=== PATIENT | female | born 1935 | race Native Hawaiian/Other Pacific Islander ===

== ENCOUNTER 2016-01-22 09:09 | Inpatient (IN) | payer OTHER ==
[~2016-01-22 09:09] MED LIST: ABILIFY5 MG OR; ALEN70TA19 PO; CARDIZEM LA360 MG PO; CITA20TA2 PO; DITROPAN XL10 MG PO; DIVA500T2 OR; DONE5TAB PO; ESCI10TA PO; FURO40TA93 PO; HYDR10TA47 PO; LEVO0.0723 PO; LIDOPATCH TOP; MAG OXIDE400 M2 OR; MEMA10TA2 PO; METAMUCIL0.52 GM OR; PANT40TA PO; POTA20TA4 PO; SPIR25TA66 PO; UNITH DIRECT150 MCG PO
== END 2016-02-22 08:00 | disposition still patient (30) ==
LOC: PAVB 09:09
PROVIDERS: ADMIT Internal Medicine
DX: Z51.89 Encounter for other specified aftercare (principal)

== ENCOUNTER 2016-02-22 09:00 | Inpatient (IN) | payer OTHER | END 2016-03-24 11:06 | disposition still patient (30) | LOC: PAVB 09:00 | PROVIDERS: ADMIT Internal Medicine | DX: Z51.89 Encounter for other specified aftercare (principal) ==

== ENCOUNTER 2016-02-23 06:51 | Outpatient (CLI) | payer OTHER | END 2016-02-23 19:18 | disposition home or self-care (01) | LOC: LAB 06:51 | DX: E11.9 Type 2 diabetes mellitus without complications (principal) | CPT/HCPCS: 36415; 83036; 84443 ==

== ENCOUNTER 2016-02-23 15:12 | Outpatient (CLI) | payer OTHER | END 2016-02-23 19:22 | disposition home or self-care (01) | LOC: LAB 15:12 | DX: E03.8 Other specified hypothyroidism (principal) ==

== ENCOUNTER 2016-03-16 01:39 | Outpatient (CLI) | payer OTHER | END 2016-03-16 23:30 | disposition home or self-care (01) | LOC: LAB 01:39 | DX: N39.0 Urinary tract infection, site not specified (principal) | CPT/HCPCS: 81000 ==

== ENCOUNTER 2016-03-24 11:50 | Inpatient (IN) | payer OTHER ==
[2016-04-14] MEDS ORDERED: FENT50DI TD (18:21)
[2016-04-14] MEDS ORDERED: HYDR5TAB9 PO (18:22)
[2016-04-14] MEDS ORDERED: DICL1GEL2 TOP (18:22)
[2016-04-14] MEDS ORDERED: MULTIVITAMI1 OR (18:23)
[2016-04-14] MEDS ORDERED: TYLENOL325 MG OR (18:23)
[2016-04-14] MEDS ORDERED: CLARITIN10 M1 PO (18:24)
[2016-04-14] MEDS ORDERED: VIT C/ACEROL500 MG OR (18:24)
[2016-04-14] MEDS ORDERED: LAXATIVE1 TAB OR (18:24)
[2016-04-14] MEDS ORDERED: CELEXA10 MG PO (18:25)
[2016-04-14] MEDS ORDERED: BACTRIM1 TAB PO (18:25)
[2016-04-14] MEDS ORDERED: DILT-XR180 MG OR (18:27)
[2016-04-14] MEDS ORDERED: DONE5TAB PO (18:28)
[2016-04-14] MEDS ORDERED: TIROSINT100 MCG OR (18:29)
[2016-04-14] MEDS ORDERED: NAMENDA XR28 MG OR (18:30)
[2016-04-14] MEDS ORDERED: REQUIP0.25 MG OR (18:30)
== END 2016-04-21 12:35 | disposition still patient (30) ==
LOC: PAVB 11:50
PROVIDERS: ADMIT Internal Medicine
DX: Z51.89 Encounter for other specified aftercare (principal)

== ENCOUNTER 2016-04-06 05:09 | Outpatient (CLI) | payer OTHER | END 2016-04-06 06:09 | disposition home or self-care (01) | LOC: LAB 05:09 | DX: N39.0 Urinary tract infection, site not specified (principal) | CPT/HCPCS: 81000; 87077; 87086; 87088; 87186 ==

== ENCOUNTER 2016-04-10 15:37 | Outpatient (CLI) | payer OTHER | END 2016-04-10 19:08 | disposition home or self-care (01) | LOC: RAD 15:37 | DX: R06.2 Wheezing (principal) ==

== ENCOUNTER 2016-04-14 14:29 | Outpatient (CLI) | payer OTHER, BC ==
[2016-04-14] MEDS ORDERED: FENT50DI TD ×2 (18:21)
[2016-04-14] MEDS ORDERED: HYDR5TAB9 PO ×2 (18:22)
[2016-04-14] MEDS ORDERED: DICL1GEL2 TOP ×2 (18:22)
[2016-04-14] MEDS ORDERED: MULTIVITAMI1 OR ×2 (18:23)
[2016-04-14] MEDS ORDERED: TYLENOL325 MG OR ×2 (18:23)
[2016-04-14] MEDS ORDERED: CLARITIN10 M1 PO ×2 (18:24)
[2016-04-14] MEDS ORDERED: LAXATIVE1 TAB OR ×2 (18:24)
[2016-04-14] MEDS ORDERED: VIT C/ACEROL500 MG OR ×2 (18:24)
[2016-04-14] MEDS ORDERED: CELEXA10 MG PO ×2 (18:25)
[2016-04-14] MEDS ORDERED: BACTRIM1 TAB PO ×2 (18:25)
[2016-04-14] MEDS ORDERED: DILT-XR180 MG OR ×2 (18:27)
[2016-04-14] MEDS ORDERED: DONE5TAB PO ×2 (18:28)
[2016-04-14] MEDS ORDERED: TIROSINT100 MCG OR ×2 (18:29)
[2016-04-14] MEDS ORDERED: REQUIP0.25 MG OR ×2 (18:30)
[2016-04-14] MEDS ORDERED: NAMENDA XR28 MG OR ×2 (18:30)
== END 2016-04-14 19:21 | disposition home or self-care (01) ==
LOC: LAB 14:29
DX: N39.0 Urinary tract infection, site not specified (principal); Z87.440 Personal history of urinary (tract) infections; R25.1 Tremor, unspecified; R23.1 Pallor
CPT/HCPCS: 36415; 81000; 87040; 87077; 87086; 87088; 87186

== ENCOUNTER 2016-04-14 17:40 | Inpatient (IN) | payer OTHER, BC ==
[~2016-04-14] VITALS: Ht 162.6 cm; Wt 71.2 kg
[2016-04-14 17:38] VITALS: BP 160/84; TEMP 99.1
[2016-04-14] MEDS ORDERED: FENT50DI TD ×2 (18:21)
[2016-04-14] MEDS ORDERED: DICL1GEL2 TOP ×2 (18:22)
[2016-04-14] MEDS ORDERED: HYDR5TAB9 PO ×2 (18:22)
[2016-04-14] MEDS ORDERED: TYLENOL325 MG OR ×2 (18:23)
[2016-04-14] MEDS ORDERED: MULTIVITAMI1 OR ×2 (18:23)
[2016-04-14] MEDS ORDERED: LAXATIVE1 TAB OR ×2 (18:24)
[2016-04-14] MEDS ORDERED: CLARITIN10 M1 PO ×2 (18:24)
[2016-04-14] MEDS ORDERED: VIT C/ACEROL500 MG OR ×2 (18:24)
[2016-04-14] MEDS ORDERED: BACTRIM1 TAB PO ×2 (18:25)
[2016-04-14] MEDS ORDERED: CELEXA10 MG PO ×2 (18:25)
[2016-04-14] MEDS ORDERED: DILT-XR180 MG OR ×2 (18:27)
[2016-04-14] MEDS ORDERED: DONE5TAB PO ×2 (18:28)
[2016-04-14] MEDS ORDERED: TIROSINT100 MCG OR ×2 (18:29)
[2016-04-14] MEDS ORDERED: NAMENDA XR28 MG OR ×2 (18:30)
[2016-04-14] MEDS ORDERED: REQUIP0.25 MG OR ×2 (18:30)
[2016-04-14 18:35] LABS: PLATELET COUNT 233 K/uL (152-353)
[2016-04-14 18:41] LABS: POTASSIUM 4.8 mmol/L (3.6-5.2); SODIUM 135 mmol/L (136-145)
[2016-04-14 21:22] VITALS: BP 120/72; TEMP 98; Ht 162.6 cm; Wt 71.2 kg
[2016-04-15] VITALS: BP 125/75; TEMP 97.7
[2016-04-15 04:00] VITALS: BP 128/68; TEMP 98.1
[2016-04-15 07:27] VITALS: BP 133/72; TEMP 98.1
[2016-04-15 12:00] VITALS: BP 132/71; TEMP 98.1
[2016-04-15 16:00] VITALS: BP 128/73; TEMP 98.2
[2016-04-15 20:05] VITALS: BP 130/76; TEMP 98.6
[2016-04-16] VITALS: BP 146/82; TEMP 98.3
[2016-04-16 04:00] VITALS: BP 153/64; TEMP 98.5
[2016-04-16 04:57] LABS: PLATELET COUNT 204 K/uL (152-353)
[2016-04-16 05:21] LABS: SODIUM 137 mmol/L (136-145)
[2016-04-16 08:00] VITALS: BP 149/77; TEMP 97.6
[2016-04-16 12:09] VITALS: BP 180/86; TEMP 97.9
== END 2016-04-16 13:40 | DRG 690 ==
LOC: ED 17:40 → MED/SURG 19:00
PROVIDERS: Emergency Medicine
DX: N39.0 Urinary tract infection, site not specified (principal); B96.4 Proteus (mirabilis) (morganii) as the cause of diseases classified elsewhere; G30.8 Other Alzheimer's disease; F02.80 Dementia in other diseases classified elsewhere, unspecified severity, without behavioral disturbance, psychotic disturbance, mood disturbance, and anxiety; E11.9 Type 2 diabetes mellitus without complications; I10 Essential (primary) hypertension; M15.8 Other polyosteoarthritis; E03.8 Other specified hypothyroidism; Z87.440 Personal history of urinary (tract) infections; R25.1 Tremor, unspecified; R23.1 Pallor
CPT/HCPCS: 36415; 80048; 80053; 81000; 83605; 85027; 87040; 87077; 87081; 87086; 87088; 87186; 87804; 87880; 96365; 96372; 99284; J0744; J1650; J3490

== ENCOUNTER 2016-04-21 13:01 | Inpatient (IN) | payer OTHER ==
[~2016-04-21 13:01] MED LIST changes: +BACTRIM1 TAB PO; +CELEXA10 MG PO; +CLARITIN10 M1 PO; +DICL1GEL2 TOP; +DILT-XR180 MG OR; +FENT50DI TD; +HYDR5TAB9 PO; +LAXATIVE1 TAB OR; +MULTIVITAMI1 OR; +NAMENDA XR28 MG OR; +REQUIP0.25 MG OR; +TIROSINT100 MCG OR; +TYLENOL325 MG OR; +VIT C/ACEROL500 MG OR
== END 2016-05-22 08:11 | disposition still patient (30) ==
LOC: PAVB 13:01
PROVIDERS: ADMIT Internal Medicine
DX: Z51.89 Encounter for other specified aftercare (principal)

== ENCOUNTER 2016-04-29 05:42 | Outpatient (CLI) | payer OTHER, BC | END 2016-04-29 19:05 | disposition home or self-care (01) | LOC: LAB 05:42 | DX: N39.0 Urinary tract infection, site not specified (principal) | CPT/HCPCS: 81000 ==

== ENCOUNTER 2016-05-14 06:05 | Outpatient (CLI) | payer OTHER, BC | END 2016-05-14 19:58 | disposition home or self-care (01) | LOC: LAB 06:05 | DX: R82.99 Other abnormal findings in urine (principal) | CPT/HCPCS: 81000; 87077; 87086; 87088; 87186 ==

== ENCOUNTER 2016-05-22 09:12 | Inpatient (IN) | payer OTHER | END 2016-06-21 09:18 | disposition still patient (30) | LOC: PAVB 09:12 | PROVIDERS: ADMIT Internal Medicine | DX: Z51.89 Encounter for other specified aftercare (principal) ==

== ENCOUNTER 2016-05-26 04:50 | Outpatient (CLI) | payer OTHER, BC ==
[2016-05-26 07:05] LABS: PLATELET COUNT 168 K/uL (152-353)
[2016-05-26 07:24] LABS: POTASSIUM 4.2 mmol/L (3.6-5.2); SODIUM 138 mmol/L (136-145)
== END 2016-05-26 05:50 | disposition home or self-care (01) ==
LOC: LAB 04:50
PROVIDERS: Internal Medicine
DX: E11.9 Type 2 diabetes mellitus without complications (principal); I10 Essential (primary) hypertension; E03.8 Other specified hypothyroidism
CPT/HCPCS: 80053; 80061; 83036; 84443; 85027

== ENCOUNTER 2016-06-08 15:52 | Outpatient (CLI) | payer OTHER, BC | END 2016-06-08 19:16 | disposition home or self-care (01) | LOC: LAB 15:52 | DX: Z16.24 Resistance to multiple antibiotics (principal) | CPT/HCPCS: 87081 ==

== ENCOUNTER 2016-06-21 10:37 | Inpatient (IN) | payer OTHER | END 2016-07-22 10:17 | disposition still patient (30) | LOC: PAVB 10:37 | PROVIDERS: ADMIT Internal Medicine | DX: Z51.89 Encounter for other specified aftercare (principal) ==

== ENCOUNTER 2016-06-23 12:44 | Outpatient (CLI) | payer OTHER, BC | END 2016-06-23 19:15 | disposition home or self-care (01) | LOC: LAB 12:44 | DX: M81.0 Age-related osteoporosis without current pathological fracture (principal) | CPT/HCPCS: 82310 ==

== ENCOUNTER 2016-07-22 10:33 | Inpatient (IN) | payer OTHER | END 2016-08-21 15:26 | disposition still patient (30) | LOC: PAVB 10:33 | PROVIDERS: ADMIT Internal Medicine | DX: Z51.89 Encounter for other specified aftercare (principal) ==

== ENCOUNTER 2016-07-23 06:30 | Outpatient (CLI) | payer OTHER | END 2016-07-23 07:30 | disposition home or self-care (01) | LOC: LAB 06:30 | DX: N39.0 Urinary tract infection, site not specified (principal) | CPT/HCPCS: 36415; 81000; 87077; 87086; 87088; 87186 ==

== ENCOUNTER 2016-08-08 05:59 | Outpatient (CLI) | payer OTHER | END 2016-08-08 07:00 | disposition home or self-care (01) | LOC: LAB 05:59 | DX: M81.0 Age-related osteoporosis without current pathological fracture (principal) | CPT/HCPCS: 36415; 82310 ==

== ENCOUNTER 2016-08-12 17:54 | Outpatient (CLI) | payer OTHER | END 2016-08-12 20:06 | disposition home or self-care (01) | LOC: RAD 17:54 | DX: R05 Cough (principal) ==

== ENCOUNTER 2016-08-21 16:04 | Inpatient (IN) | payer OTHER ==
[2016-08-28] MEDS ORDERED: CULTURELL3 OR (02:12)
[2016-08-28] MEDS ORDERED: OMEP40CA PO (02:16)
== END 2016-09-21 09:49 | disposition still patient (30) ==
LOC: PAVB 16:04
PROVIDERS: ADMIT Internal Medicine
DX: Z51.89 Encounter for other specified aftercare (principal)

== ENCOUNTER 2016-08-23 07:28 | Outpatient (CLI) | payer OTHER | END 2016-08-23 08:30 | disposition home or self-care (01) | LOC: LAB 07:28 | DX: E11.9 Type 2 diabetes mellitus without complications (principal) | CPT/HCPCS: 83036 ==

== ENCOUNTER 2016-08-27 16:39 | Inpatient (IN) | payer OTHER ==
[~2016-08-27] VITALS: Ht 162.6 cm; Wt 69.4 kg
[2016-08-27 16:50] VITALS: BP 214/105; TEMP 97.9
[2016-08-27 17:54] LABS: PLATELET COUNT 164 K/uL (152-353)
[2016-08-27 19:26] LABS: SODIUM 142 mmol/L (136-145)
[2016-08-27 21:05] VITALS: BP 179/88
[2016-08-27 22:28] VITALS: BP 199/100
[2016-08-28] VITALS (12 sets, daily range): BP systolic 101–191; BP diastolic 51–110; TEMP 98.3–100.4; Ht 162.6 cm; Wt 69.4 kg
[2016-08-28] MEDS ORDERED: CULTURELL3 OR (02:12)
[2016-08-28] MEDS ORDERED: OMEP40CA PO (02:16)
[2016-08-28 07:30] LABS: PLATELET COUNT 191 K/uL (152-353)
[2016-08-28 07:47] LABS: POTASSIUM 3.5 mmol/L (3.6-5.2); SODIUM 139 mmol/L (136-145)
[2016-08-29 00:13] VITALS: BP 115/57; TEMP 97.7
[2016-08-29 04:00] VITALS: BP 118/60; TEMP 97.6
[2016-08-29 06:12] LABS: PLATELET COUNT 155 K/uL (152-353)
[2016-08-29 06:26] LABS: POTASSIUM 3.6 mmol/L (3.6-5.2); SODIUM 138 mmol/L (136-145)
[2016-08-29 08:00] VITALS: BP 136/72; TEMP 97.6
[2016-08-29 12:00] VITALS: BP 126/64; TEMP 98.6
[2016-08-29 16:00] VITALS: BP 141/68; TEMP 98.1
[2016-08-29 20:00] VITALS: BP 133/53; TEMP 98.2
[2016-08-30] VITALS: BP 152/74; TEMP 98
[2016-08-30 04:00] VITALS: BP 121/82; TEMP 98.1
[2016-08-30 06:08] LABS: PLATELET COUNT 137 K/uL (152-353)
[2016-08-30 06:13] LABS: POTASSIUM 3.5 mmol/L (3.6-5.2); SODIUM 140 mmol/L (136-145)
[2016-08-30 08:00] VITALS: BP 124/78; BP 129/78; TEMP 97.5; TEMP 97.8
[2016-08-30 12:00] VITALS: BP 146/69; TEMP 97.6
[2016-08-30 16:00] VITALS: BP 164/77; TEMP 98.5
[2016-08-30 20:00] VITALS: BP 128/76; TEMP 98.5
[2016-08-31] VITALS: BP 132/67; TEMP 98.7
[2016-08-31 04:00] VITALS: BP 180/87; TEMP 98.7
[2016-08-31 07:07] LABS: POTASSIUM 3.3 mmol/L (3.6-5.2); SODIUM 140 mmol/L (136-145)
[2016-08-31 07:32] LABS: PLATELET COUNT 157 K/uL (152-353)
[2016-08-31 08:00] VITALS: BP 145/71; TEMP 98.2
[2016-08-31 12:00] VITALS: BP 132/68; TEMP 97.8
== END 2016-08-31 16:05 | DRG 394 ==
LOC: ED 16:39 → ICU 22:10 → MED/SURG 08-28 13:48
PROVIDERS: Emergency Medicine; ADMIT Emergency Medicine
DX: K63.89 Other specified diseases of intestine (principal); N39.0 Urinary tract infection, site not specified; R11.2 Nausea with vomiting, unspecified; R00.1 Bradycardia, unspecified; G30.8 Other Alzheimer's disease; F02.80 Dementia in other diseases classified elsewhere, unspecified severity, without behavioral disturbance, psychotic disturbance, mood disturbance, and anxiety; I10 Essential (primary) hypertension; K20.8 Other esophagitis; E03.8 Other specified hypothyroidism; E11.9 Type 2 diabetes mellitus without complications; B96.20 Unspecified Escherichia coli [E. coli] as the cause of diseases classified elsewhere
CPT/HCPCS: 36415; 80048; 80053; 81000; 81002; 82550; 83605; 83735; 84443; 84484; 85027; 87077; 87086; 87088; 87186; 93005; 96365; 96372; 96375; 96376; 99284; J0744; J1200; J1650; J2270; J2405; J2780; J3490

== ENCOUNTER 2016-09-03 04:20 | Outpatient (CLI) | payer OTHER ==
[~2016-09-03 04:20] MED LIST changes: +CULTURELL3 OR; +OMEP40CA PO
[2016-09-03 06:15] LABS: PLATELET COUNT 150 K/uL (152-353)
== END 2016-09-03 19:07 | disposition home or self-care (01) ==
LOC: LAB 04:20
PROVIDERS: Internal Medicine
DX: R71.8 Other abnormality of red blood cells (principal); Z13.0 Encounter for screening for diseases of the blood and blood-forming organs and certain disorders involving the immune mechanism
CPT/HCPCS: 85027

== ENCOUNTER 2016-09-08 15:43 | Outpatient (CLI) | payer OTHER, BC | END 2016-09-08 19:19 | disposition home or self-care (01) | LOC: LAB 15:43 | DX: N39.0 Urinary tract infection, site not specified (principal) | CPT/HCPCS: 81000 ==

== ENCOUNTER 2016-09-21 11:30 | Inpatient (IN) | payer OTHER | END 2016-10-22 08:46 | disposition still patient (30) | LOC: PAVB 11:30 | PROVIDERS: ADMIT Internal Medicine | DX: Z51.89 Encounter for other specified aftercare (principal) ==

== ENCOUNTER 2016-10-22 09:39 | Inpatient (IN) | payer OTHER | END 2016-11-21 09:09 | disposition still patient (30) | LOC: PAVB 09:39 → PAVA 11-15 13:42 | PROVIDERS: ADMIT Internal Medicine | DX: Z51.89 Encounter for other specified aftercare (principal) ==

== ENCOUNTER 2016-10-24 16:38 | Outpatient (CLI) | payer OTHER | END 2016-10-24 18:59 | disposition home or self-care (01) | LOC: LAB 16:38 | DX: M10.9 Gout, unspecified (principal) | CPT/HCPCS: 81000 ==

== ENCOUNTER 2016-11-21 09:26 | Inpatient (IN) | payer OTHER | END 2016-12-22 10:25 | disposition still patient (30) | LOC: PAVA 09:26 | PROVIDERS: ADMIT Internal Medicine ==

== ENCOUNTER 2016-11-29 06:54 | Outpatient (CLI) | payer OTHER ==
[2016-11-29 08:31] LABS: PLATELET COUNT 164 K/uL (152-353)
[2016-11-29 08:40] LABS: POTASSIUM 3.9 mmol/L (3.6-5.2); SODIUM 139 mmol/L (136-145)
== END 2016-11-29 18:56 | disposition home or self-care (01) ==
LOC: LAB 06:54
PROVIDERS: Internal Medicine
DX: E03.8 Other specified hypothyroidism (principal); Z13.0 Encounter for screening for diseases of the blood and blood-forming organs and certain disorders involving the immune mechanism; E11.9 Type 2 diabetes mellitus without complications
CPT/HCPCS: 80053; 80061; 83036; 84443; 85027

== ENCOUNTER 2016-12-22 12:25 | Inpatient (IN) | payer OTHER | END 2017-01-21 08:13 | disposition still patient (30) | LOC: PAVA 12:25 | PROVIDERS: ADMIT Internal Medicine ==

== ENCOUNTER 2017-01-18 10:18 | Outpatient (CLI) | payer OTHER, BC | END 2017-01-18 19:09 | disposition home or self-care (01) | LOC: US 10:18 | DX: R11.2 Nausea with vomiting, unspecified (principal) ==

== ENCOUNTER 2017-01-19 20:06 | Outpatient (CLI) | payer OTHER, BC | END 2017-01-19 22:00 | disposition home or self-care (01) | LOC: RAD 20:06 | DX: R11.2 Nausea with vomiting, unspecified (principal) ==

== ENCOUNTER 2017-01-21 08:58 | Inpatient (IN) | payer OTHER ==
[2017-01-29] MEDS ORDERED: TIROSINT150 MCG OR (06:28)
== END 2017-02-21 08:31 | disposition still patient (30) ==
LOC: PAVA 08:58
PROVIDERS: ADMIT Internal Medicine
CPT/HCPCS: Q9963

== ENCOUNTER 2017-01-26 06:19 | Outpatient (CLI) | payer OTHER | END 2017-01-26 21:07 | disposition home or self-care (01) | LOC: LAB 06:19 → CT 08:30 → LAB 21:07 | DX: R11.2 Nausea with vomiting, unspecified (principal) | CPT/HCPCS: 82310; 82565; 84520 ==

== ENCOUNTER 2017-01-28 08:30 | Inpatient (IN) | payer OTHER, BC ==
[2017-01-28] VITALS (16 sets, daily range): BP systolic 150–202; BP diastolic 75–110; TEMP 94.2–99.1; Ht 162.6 cm; Wt 64.4 kg
[~2017-01-28] VITALS: Ht 162.6 cm; Wt 64.4 kg
[2017-01-28 10:26] LABS: PLATELET COUNT 211 K/uL (152-353)
[2017-01-28 10:34] LABS: POTASSIUM 3.9 mmol/L (3.6-5.2); SODIUM 137 mmol/L (136-145)
[2017-01-28 11:07] LABS: PARTIAL THROMBOPLASTIN TIME 28.5 SECONDS (24.5-33.6)
[2017-01-28 18:52] LABS: PLATELET COUNT 211 K/uL (152-353)
[2017-01-28 19:02] LABS: POTASSIUM 3.1 mmol/L (3.6-5.2); SODIUM 138 mmol/L (136-145)
[2017-01-29] VITALS (30 sets, daily range): BP systolic 141–215; BP diastolic 68–114; TEMP 97.5–99.3
[2017-01-29] MEDS ORDERED: TIROSINT150 MCG OR (06:28)
[2017-01-29 10:04] LABS: PLATELET COUNT 219 K/uL (152-353)
[2017-01-29 10:26] LABS: POTASSIUM 4.8 mmol/L (3.6-5.2); SODIUM 135 mmol/L (136-145)
[2017-01-30] VITALS (24 sets, daily range): BP systolic 111–179; BP diastolic 56–104; TEMP 97.6–99.6
[2017-01-30 06:55] LABS: POTASSIUM 4.1 mmol/L (3.6-5.2); SODIUM 140 mmol/L (136-145)
[2017-01-30 07:02] LABS: PLATELET COUNT 180 K/uL (152-353)
[2017-01-31] VITALS (20 sets, daily range): BP systolic 106–144; BP diastolic 49–85; TEMP 97.5–97.9
[2017-01-31 06:34] LABS: PLATELET COUNT 135 K/uL (152-353)
[2017-01-31 06:49] LABS: POTASSIUM 3.6 mmol/L (3.6-5.2); SODIUM 143 mmol/L (136-145)
[2017-02-01] VITALS (17 sets, daily range): BP systolic 111–160; BP diastolic 56–118; TEMP 97.7–99
[2017-02-01 11:05] LABS: POTASSIUM 3.4 mmol/L (3.6-5.2); SODIUM 143 mmol/L (136-145)
[2017-02-01 11:25] LABS: PLATELET COUNT 134 K/uL (152-353)
[2017-02-02] VITALS (24 sets, daily range): BP systolic 107–169; BP diastolic 59–103; TEMP 97.3–99.2
[2017-02-03] VITALS (18 sets, daily range): BP systolic 126–206; BP diastolic 40–125; TEMP 98.1–99.1
[2017-02-04] VITALS (27 sets, daily range): BP systolic 115–199; BP diastolic 62–105; TEMP 97.5–100
[2017-02-04 06:02] LABS: PLATELET COUNT 235 K/uL (152-353)
[2017-02-04 06:20] LABS: POTASSIUM 3.8 mmol/L (3.6-5.2); SODIUM 137 mmol/L (136-145)
[2017-02-05] VITALS (22 sets, daily range): BP systolic 114–179; BP diastolic 59–90; TEMP 97.9–98.4
[2017-02-06] VITALS: BP 140/72; TEMP 98.4
[2017-02-06 01:00] VITALS: BP 127/68
[2017-02-06 02:00] VITALS: BP 146/74
[2017-02-06 03:00] VITALS: BP 146/66
[2017-02-06 04:00] VITALS: BP 144/66
[2017-02-06 05:00] VITALS: BP 160/88; TEMP 98.4
[2017-02-06 10:55] LABS: PLATELET COUNT 220 K/uL (152-353)
[2017-02-06 11:00] LABS: SODIUM 140 mmol/L (136-145)
== END 2017-02-06 13:30 | DRG 417 ==
LOC: OR 08:30 → ICU 15:10
PROVIDERS: Internal Medicine; ADMIT Student in an Organized Health Care Education/Training Program
PROC: 0FT44ZZ Resection of Gallbladder, Percutaneous Endoscopic Approach (ICD-10-PCS; principal; 2017-01-28)
DX: K80.10 Calculus of gallbladder with chronic cholecystitis without obstruction (principal); A41.51 Sepsis due to Escherichia coli [E. coli]; N39.0 Urinary tract infection, site not specified; K82.8 Other specified diseases of gallbladder; I10 Essential (primary) hypertension; E11.9 Type 2 diabetes mellitus without complications; K21.9 Gastro-esophageal reflux disease without esophagitis; M81.8 Other osteoporosis without current pathological fracture; G30.8 Other Alzheimer's disease; F02.80 Dementia in other diseases classified elsewhere, unspecified severity, without behavioral disturbance, psychotic disturbance, mood disturbance, and anxiety; E03.8 Other specified hypothyroidism; T36.8X5A Adverse effect of other systemic antibiotics, initial encounter; Y92.89 Other specified places as the place of occurrence of the external cause; R11.2 Nausea with vomiting, unspecified
CPT/HCPCS: 36415; 51702; 80048; 80053; 81000; 82310; 82550; 82565; 82962; 83605; 84484; 84520; 85027; 85610; 85730; 87040; 87077; 87086; 87088; 87186; 93005; 94760; 96372; J0360; J0690; J0696; J1100; J1200; J1644; J1815; J1956; J2001; J2270; J2405; J2704; J3010; J3490; Q9963; S0028

== ENCOUNTER 2017-02-07 04:01 | Outpatient (CLI) | payer OTHER ==
[~2017-02-07 04:01] MED LIST changes: +TIROSINT150 MCG OR
== END 2017-02-07 05:05 | disposition home or self-care (01) ==
LOC: LAB 04:01
DX: Z09 Encounter for follow-up examination after completed treatment for conditions other than malignant neoplasm (principal)
CPT/HCPCS: 81000

== ENCOUNTER 2017-02-17 10:41 | Outpatient (CLI) | payer OTHER, BC ==
[2017-02-17 11:02] LABS: POTASSIUM 3.5 mmol/L (3.6-5.2); SODIUM 141 mmol/L (136-145)
[2017-02-17 11:09] LABS: PLATELET COUNT 220 K/uL (152-353)
== END 2017-02-17 22:32 | disposition home or self-care (01) ==
LOC: LAB 10:41
PROVIDERS: Internal Medicine
DX: R53.83 Other fatigue (principal)
CPT/HCPCS: 80053; 81000; 85027; 87077; 87086; 87088; 87186

== ENCOUNTER 2017-02-21 09:12 | Inpatient (IN) | payer OTHER | END 2017-03-24 08:33 | disposition still patient (30) | LOC: PAVA 09:12 | PROVIDERS: ADMIT Internal Medicine | CPT/HCPCS: 81000 ==

== ENCOUNTER 2017-02-25 05:10 | Outpatient (CLI) | payer OTHER | END 2017-02-26 05:16 | disposition home or self-care (01) | LOC: LAB 05:10 | DX: E11.9 Type 2 diabetes mellitus without complications (principal) | CPT/HCPCS: 83036 ==

== ENCOUNTER 2017-03-02 18:36 | Outpatient (CLI) | payer OTHER, BC ==
[2017-03-02 19:22] LABS: PLATELET COUNT 147 K/uL (152-353)
[2017-03-02 19:33] LABS: POTASSIUM 4.5 mmol/L (3.6-5.2); SODIUM 136 mmol/L (136-145)
== END 2017-03-02 19:43 | disposition home or self-care (01) ==
LOC: LABW 18:36
PROVIDERS: Internal Medicine
DX: R09.2 Respiratory arrest (principal); R50.9 Fever, unspecified; R09.02 Hypoxemia
CPT/HCPCS: 80053; 85027

== ENCOUNTER 2017-03-03 00:44 | Outpatient (CLI) | payer OTHER | END 2017-03-03 21:56 | LOC: LAB 00:44 → RAD 00:44 → LAB 21:56 | DX: R09.2 Respiratory arrest (principal); R50.9 Fever, unspecified ==

== ENCOUNTER 2017-03-03 17:34 | Outpatient (CLI) | payer OTHER, BC | END 2017-03-03 22:09 | disposition home or self-care (01) | LOC: RAD 17:34 | DX: R10.84 Generalized abdominal pain (principal) | CPT/HCPCS: 74022 ==

== ENCOUNTER 2017-03-24 09:39 | Inpatient (IN) | payer OTHER | END 2017-04-21 08:08 | disposition still patient (30) | LOC: PAVA 09:39 | PROVIDERS: ADMIT Internal Medicine ==

== ENCOUNTER 2017-04-21 08:57 | Inpatient (IN) | payer OTHER | END 2017-05-22 08:00 | disposition still patient (30) | LOC: PAVA 08:57 | PROVIDERS: ADMIT Internal Medicine ==

== ENCOUNTER 2017-05-22 09:00 | Inpatient (IN) | payer OTHER | END 2017-06-21 08:12 | disposition still patient (30) | LOC: PAVA 09:00 | PROVIDERS: ADMIT Internal Medicine ==

== ENCOUNTER 2017-05-30 07:47 | Outpatient (CLI) | payer OTHER ==
[2017-05-30 08:03] LABS: PLATELET COUNT 236 K/uL (152-353)
== END 2017-05-30 21:47 | disposition home or self-care (01) ==
LOC: LAB 07:47
PROVIDERS: Internal Medicine
DX: E11.9 Type 2 diabetes mellitus without complications (principal); I10 Essential (primary) hypertension; E03.8 Other specified hypothyroidism
CPT/HCPCS: 36415; 80053; 80061; 83036; 84443; 85027

== ENCOUNTER 2017-06-06 08:08 | Outpatient (CLI) | payer OTHER ==
[2017-06-06 08:37] LABS: PLATELET COUNT 179 K/uL (152-353)
[2017-06-06 08:58] LABS: POTASSIUM 4.5 mmol/L (3.6-5.2)
== END 2017-06-06 19:59 | disposition home or self-care (01) ==
LOC: LAB 08:08
PROVIDERS: Internal Medicine
DX: R11.11 Vomiting without nausea (principal); R53.81 Other malaise
CPT/HCPCS: 80053; 85027

== ENCOUNTER 2017-06-07 07:43 | Outpatient (CLI) | payer OTHER | END 2017-06-07 19:57 | disposition home or self-care (01) | LOC: MRI 07:43 | DX: R79.89 Other specified abnormal findings of blood chemistry (principal); R11.2 Nausea with vomiting, unspecified; R10.84 Generalized abdominal pain | CPT/HCPCS: 82150; 83690 ==

== ENCOUNTER 2017-06-10 09:10 | Outpatient (CLI) | payer OTHER | END 2017-06-10 22:24 | disposition home or self-care (01) | LOC: INF 09:10 | DX: K83.1 Obstruction of bile duct (principal) | CPT/HCPCS: 96365; J0696 ==

== ENCOUNTER 2017-06-11 09:55 | Outpatient (CLI) | payer OTHER | END 2017-06-11 19:13 | disposition home or self-care (01) | LOC: INF 09:55 | DX: K83.1 Obstruction of bile duct (principal) | CPT/HCPCS: 96365; J0696 ==

== ENCOUNTER 2017-06-12 09:32 | Outpatient (CLI) | payer OTHER | END 2017-06-12 22:46 | disposition home or self-care (01) | LOC: INF 09:32 | DX: K83.1 Obstruction of bile duct (principal) | CPT/HCPCS: 96365; J0696 ==

== ENCOUNTER 2017-06-21 08:49 | Inpatient (IN) | payer OTHER | END 2017-07-22 08:21 | disposition still patient (30) | LOC: PAVA 08:49 | PROVIDERS: ADMIT Internal Medicine ==

== ENCOUNTER 2017-07-22 08:42 | Inpatient (IN) | payer OTHER | END 2017-08-21 14:15 | disposition still patient (30) | LOC: PAVA 08:42 | PROVIDERS: ADMIT Internal Medicine ==

== ENCOUNTER 2017-07-25 04:05 | Outpatient (CLI) | payer OTHER | END 2017-07-25 21:57 | disposition home or self-care (01) | LOC: LAB 04:05 | DX: E03.8 Other specified hypothyroidism (principal) | CPT/HCPCS: 82310 ==

== ENCOUNTER 2017-08-21 14:33 | Inpatient (IN) | payer OTHER | END 2017-09-21 08:00 | disposition still patient (30) | LOC: PAVA 14:33 | PROVIDERS: ADMIT Internal Medicine ==

== ENCOUNTER 2017-08-25 03:42 | Outpatient (CLI) | payer OTHER | END 2017-08-25 19:26 | disposition home or self-care (01) | LOC: LAB 03:42 | DX: E11.9 Type 2 diabetes mellitus without complications (principal) | CPT/HCPCS: 83036 ==

== ENCOUNTER 2017-09-21 09:00 | Inpatient (IN) | payer OTHER | END 2017-10-22 09:57 | disposition still patient (30) | LOC: PAVA 09:00 | PROVIDERS: ADMIT Internal Medicine ==

== ENCOUNTER 2017-10-14 09:42 | Outpatient (CLI) | payer OTHER, BC ==
[2017-10-14 10:11] LABS: POTASSIUM 4.6 mmol/L (3.6-5.2)
[2017-10-14 10:44] LABS: PLATELET COUNT 96 K/uL (152-353)
== END 2017-10-14 22:45 | disposition home or self-care (01) ==
LOC: LAB 09:42
PROVIDERS: Internal Medicine
DX: R17 Unspecified jaundice (principal); R11.2 Nausea with vomiting, unspecified
CPT/HCPCS: 36415; 80053; 82140; 85027

== ENCOUNTER 2017-10-17 13:22 | Outpatient (CLI) | payer OTHER | END 2017-10-17 20:52 | disposition home or self-care (01) | LOC: LAB 13:22 | DX: K76.9 Liver disease, unspecified (principal); R17 Unspecified jaundice | CPT/HCPCS: 36415; 80076 ==

== ENCOUNTER 2017-10-22 10:10 | Inpatient (IN) | payer OTHER | END 2017-11-21 08:40 | disposition still patient (30) | LOC: PAVA 10:10 | PROVIDERS: ADMIT Internal Medicine ==

== ENCOUNTER 2017-11-21 08:59 | Inpatient (IN) | payer OTHER | END 2017-12-22 08:11 | disposition still patient (30) | LOC: PAVA 08:59 | PROVIDERS: ADMIT Internal Medicine ==

== ENCOUNTER 2017-11-24 06:39 | Outpatient (CLI) | payer OTHER ==
[2017-11-24 08:00] LABS: PLATELET COUNT 177 K/uL (152-353)
[2017-11-24 08:16] LABS: POTASSIUM 5.1 mmol/L (3.6-5.2)
== END 2017-11-24 20:31 | disposition home or self-care (01) ==
LOC: LAB 06:39
PROVIDERS: Internal Medicine
DX: E03.9 Hypothyroidism, unspecified (principal); E11.9 Type 2 diabetes mellitus without complications
CPT/HCPCS: 36415; 80053; 80061; 83036; 84443; 85027

== ENCOUNTER 2017-12-22 08:27 | Inpatient (IN) | payer OTHER | END 2018-01-21 08:05 | disposition still patient (30) | LOC: PAVA 08:27 | PROVIDERS: ADMIT Internal Medicine ==

== ENCOUNTER 2018-01-21 08:19 | Inpatient (IN) | payer OTHER | END 2018-02-21 10:22 | disposition still patient (30) | LOC: PAVA 08:19 | PROVIDERS: ADMIT Internal Medicine ==

== ENCOUNTER 2018-01-27 13:40 | Outpatient (CLI) | payer OTHER | END 2018-01-27 23:15 | disposition home or self-care (01) | LOC: RAD 13:40 | DX: Z78.0 Asymptomatic menopausal state (principal) ==

== ENCOUNTER 2018-01-30 04:14 | Outpatient (CLI) | payer OTHER | END 2018-01-30 22:43 | disposition home or self-care (01) | LOC: LAB 04:14 | DX: E03.8 Other specified hypothyroidism (principal) | CPT/HCPCS: 82310 ==

== ENCOUNTER 2018-02-21 10:54 | Inpatient (IN) | payer OTHER | END 2018-03-24 14:16 | disposition still patient (30) | LOC: PAVA 10:54 | PROVIDERS: ADMIT Internal Medicine ==

== ENCOUNTER 2018-03-24 14:34 | Inpatient (IN) | payer OTHER | END 2018-04-21 09:15 | disposition still patient (30) | LOC: PAVA 14:34 | PROVIDERS: ADMIT Internal Medicine ==

== ENCOUNTER 2018-04-21 09:47 | Inpatient (IN) | payer OTHER | END 2018-05-22 07:55 | disposition still patient (30) | LOC: PAVA 09:47 | PROVIDERS: ADMIT Internal Medicine ==

== ENCOUNTER 2018-05-22 08:32 | Inpatient (IN) | payer OTHER | END 2018-06-21 09:39 | disposition still patient (30) | LOC: PAVA 08:32 | PROVIDERS: ADMIT Internal Medicine ==

== ENCOUNTER 2018-05-29 05:04 | Outpatient (CLI) | payer OTHER ==
[2018-05-29 05:23] LABS: PLATELET COUNT 162 K/uL (152-353)
[2018-05-29 05:53] LABS: POTASSIUM 4.4 mmol/L (3.6-5.2)
== END 2018-05-29 22:53 | disposition home or self-care (01) ==
LOC: LAB 05:04
PROVIDERS: Internal Medicine
DX: E11.21 Type 2 diabetes mellitus with diabetic nephropathy (principal); E03.9 Hypothyroidism, unspecified; D64.9 Anemia, unspecified
CPT/HCPCS: 36415; 80053; 80061; 83036; 84443; 85027

== ENCOUNTER 2018-06-21 10:52 | Inpatient (IN) | payer OTHER | END 2018-07-22 08:13 | disposition still patient (30) | LOC: PAVA 10:52 | PROVIDERS: ADMIT Internal Medicine | DX: Z51.89 Encounter for other specified aftercare (principal) | CPT/HCPCS: 81000 ==

== ENCOUNTER 2018-07-01 02:37 | Outpatient (CLI) | payer OTHER | END 2018-07-01 19:32 | disposition home or self-care (01) | LOC: LABW 02:37 | DX: N39.0 Urinary tract infection, site not specified (principal) ==

== ENCOUNTER 2018-07-22 08:27 | Inpatient (IN) | payer OTHER | END 2018-08-21 08:30 | disposition still patient (30) | LOC: PAVA 08:27 | PROVIDERS: ADMIT Internal Medicine ==

== ENCOUNTER 2018-08-21 04:01 | Outpatient (CLI) | payer OTHER | END 2018-08-21 23:31 | disposition home or self-care (01) | LOC: LAB 04:01 | DX: E11.9 Type 2 diabetes mellitus without complications (principal) | CPT/HCPCS: 36415; 83036 ==

== ENCOUNTER 2018-08-21 09:17 | Inpatient (IN) | payer OTHER | END 2018-09-21 09:08 | disposition still patient (30) | LOC: PAVA 09:17 | PROVIDERS: ADMIT Internal Medicine ==

== ENCOUNTER 2018-09-21 10:06 | Inpatient (IN) | payer OTHER | END 2018-10-22 15:58 | disposition still patient (30) | LOC: PAVA 10:06 | PROVIDERS: ADMIT Internal Medicine ==

== ENCOUNTER 2018-10-22 16:11 | Inpatient (IN) | payer OTHER | END 2018-11-21 08:05 | disposition still patient (30) | LOC: PAVA 16:11 | PROVIDERS: ADMIT Internal Medicine ==

== ENCOUNTER 2018-11-21 09:11 | Inpatient (IN) | payer OTHER | END 2018-12-22 08:58 | disposition still patient (30) | LOC: PAVA 09:11 | PROVIDERS: ADMIT Internal Medicine ==

== ENCOUNTER 2018-11-22 06:52 | Outpatient (CLI) | payer OTHER ==
[2018-11-22 07:16] LABS: PLATELET COUNT 175 K/uL (152-353)
[2018-11-22 08:01] LABS: POTASSIUM 5.1 mmol/L (3.6-5.2)
== END 2018-11-22 23:47 | disposition home or self-care (01) ==
LOC: LAB 06:52
PROVIDERS: Internal Medicine
DX: E11.9 Type 2 diabetes mellitus without complications (principal); E03.8 Other specified hypothyroidism
CPT/HCPCS: 80053; 80061; 83036; 84443; 85027

== ENCOUNTER 2018-12-22 10:58 | Inpatient (IN) | payer OTHER | END 2019-01-21 08:00 | disposition still patient (30) | LOC: PAVA 10:58 | PROVIDERS: ADMIT Internal Medicine ==

== ENCOUNTER 2019-01-21 09:00 | Inpatient (IN) | payer OTHER | END 2019-02-21 07:59 | disposition still patient (30) | LOC: PAVA 09:00 | PROVIDERS: ADMIT Internal Medicine ==

== ENCOUNTER 2019-01-23 06:07 | Outpatient (CLI) | payer OTHER | END 2019-01-23 20:13 | disposition home or self-care (01) | LOC: LAB 06:07 | DX: E87.6 Hypokalemia (principal) | CPT/HCPCS: 82310 ==

== ENCOUNTER 2019-02-21 08:26 | Inpatient (IN) | payer OTHER | END 2019-03-24 09:31 | disposition still patient (30) | LOC: PAVA 08:26 | PROVIDERS: ADMIT Internal Medicine ==

== ENCOUNTER 2019-02-22 06:38 | Outpatient (CLI) | payer OTHER | END 2019-02-22 19:31 | disposition home or self-care (01) | LOC: LAB 06:38 | DX: E11.9 Type 2 diabetes mellitus without complications (principal) | CPT/HCPCS: 83036 ==

== ENCOUNTER 2019-03-24 09:47 | Inpatient (IN) | payer OTHER | END 2019-04-22 12:45 | disposition still patient (30) | LOC: PAVA 09:47 | PROVIDERS: ADMIT Internal Medicine ==

== ENCOUNTER 2019-04-22 13:02 | Inpatient (IN) | payer OTHER | END 2019-05-23 08:58 | disposition still patient (30) | LOC: PAVA 13:02 | PROVIDERS: ADMIT Internal Medicine ==

== ENCOUNTER 2019-05-23 09:21 | Inpatient (IN) | payer OTHER | END 2019-06-22 08:03 | disposition still patient (30) | LOC: PAVA 09:21 | PROVIDERS: ADMIT Internal Medicine ==

== ENCOUNTER 2019-05-28 05:21 | Outpatient (CLI) | payer OTHER ==
[2019-05-28 06:59] LABS: POTASSIUM 5.1 mmol/L (3.6-5.2)
[2019-05-28 07:54] LABS: PLATELET COUNT 166 K/uL (152-353)
== END 2019-05-28 19:12 | disposition home or self-care (01) ==
LOC: LAB 05:21
PROVIDERS: Internal Medicine
DX: E11.9 Type 2 diabetes mellitus without complications (principal); I10 Essential (primary) hypertension; R00.1 Bradycardia, unspecified; E03.8 Other specified hypothyroidism
CPT/HCPCS: 80053; 83036; 84443; 85027

== ENCOUNTER 2019-06-22 08:45 | Inpatient (IN) | payer OTHER | END 2019-07-23 08:11 | disposition still patient (30) | LOC: PAVA 08:45 | PROVIDERS: ADMIT Internal Medicine | CPT/HCPCS: 87635; 93005; U0002 ==

== ENCOUNTER 2019-07-03 15:19 | Outpatient (CLI) | payer OTHER | END 2019-07-03 22:31 | disposition home or self-care (01) | LOC: LAB 15:19 | DX: R82.998 Other abnormal findings in urine (principal); R50.9 Fever, unspecified | CPT/HCPCS: 87077; 87086; 87088; 87186 ==

== ENCOUNTER 2019-07-04 12:20 | Outpatient (CLI) | payer OTHER | END 2019-07-04 22:23 | disposition home or self-care (01) | LOC: LAB 12:20 | DX: R50.9 Fever, unspecified (principal) | CPT/HCPCS: 81000 ==

== ENCOUNTER 2019-07-06 16:45 | Outpatient (CLI) | payer OTHER ==
[2019-07-06 17:26] LABS: PLATELET COUNT 110 K/uL (152-353)
[2019-07-06 17:38] LABS: POTASSIUM 4.7 mmol/L (3.6-5.2)
== END 2019-07-06 19:12 | disposition home or self-care (01) ==
LOC: LAB 16:45
PROVIDERS: Internal Medicine
DX: R50.9 Fever, unspecified (principal); R39.12 Poor urinary stream
CPT/HCPCS: 80053; 85027; 87040

== ENCOUNTER 2019-07-09 11:21 | Outpatient (CLI) | payer OTHER | END 2019-07-09 19:42 | disposition home or self-care (01) | LOC: RAD 11:21 | DX: R09.02 Hypoxemia (principal) ==

== ENCOUNTER → 2019-07-09 | Outpatient (CLI) | payer OTHER | LOC: LAB 22:03 | DX: R09.02 Hypoxemia (principal) | CPT/HCPCS: 36415; 85379 ==

== ENCOUNTER 2019-07-10 10:12 | Outpatient (CLI) | payer OTHER | END 2019-07-10 19:10 | disposition home or self-care (01) | LOC: RESP 10:12 | DX: R00.1 Bradycardia, unspecified (principal) | CPT/HCPCS: 93005 ==

== ENCOUNTER → 2019-07-10 | Outpatient (CLI) | payer OTHER ==
[2019-07-11 15:53] LABS: POTASSIUM 4.9 mmol/L (3.6-5.2)
[2019-07-11 16:04] LABS: PLATELET COUNT 257 K/uL (152-353)
== END ==
LOC: RAD 21:44 → LAB 21:44
PROVIDERS: Nurse Practitioner
DX: R94.31 Abnormal electrocardiogram [ECG] [EKG] (principal); R06.89 Other abnormalities of breathing; J18.9 Pneumonia, unspecified organism
CPT/HCPCS: 80053; 85027

== ENCOUNTER 2019-07-16 13:48 | Outpatient (CLI) | payer OTHER | END 2019-07-16 20:46 | disposition home or self-care (01) | LOC: LAB 13:48 | DX: R79.1 Abnormal coagulation profile (principal) | CPT/HCPCS: 85379 ==

== ENCOUNTER 2019-07-23 06:17 | Outpatient (CLI) | payer OTHER | END 2019-07-23 19:49 | disposition home or self-care (01) | LOC: LAB 06:17 | DX: M81.0 Age-related osteoporosis without current pathological fracture (principal) | CPT/HCPCS: 82310 ==

== ENCOUNTER 2019-07-23 08:28 | Inpatient (IN) | payer OTHER | END 2019-08-22 08:26 | disposition still patient (30) | LOC: PAVA 08:28 | PROVIDERS: ADMIT Internal Medicine | CPT/HCPCS: 87635; U0002 ==

== ENCOUNTER 2019-08-22 08:01 | Outpatient (CLI) | payer OTHER | END 2019-08-22 22:02 | disposition home or self-care (01) | LOC: LAB 08:01 | DX: E11.9 Type 2 diabetes mellitus without complications (principal) | CPT/HCPCS: 83036 ==

== ENCOUNTER 2019-08-22 09:46 | Inpatient (IN) | payer OTHER | END 2019-09-22 08:23 | disposition still patient (30) | LOC: PAVA 09:46 | PROVIDERS: ADMIT Internal Medicine | CPT/HCPCS: 87635; U0002 ==

== ENCOUNTER 2019-09-22 08:55 | Inpatient (IN) | payer OTHER | END 2019-10-23 10:50 | disposition still patient (30) | LOC: PAVA 08:55 | PROVIDERS: ADMIT Internal Medicine | CPT/HCPCS: 87635; U0002 ==

== ENCOUNTER 2019-09-27 14:52 | Outpatient (CLI) | payer OTHER | END 2019-09-27 20:10 | disposition home or self-care (01) | LOC: LAB 14:52 | DX: R41.82 Altered mental status, unspecified (principal); R82.998 Other abnormal findings in urine | CPT/HCPCS: 81000 ==

== ENCOUNTER 2019-10-23 11:26 | Inpatient (IN) | payer OTHER ==
[2019-11-19] MEDS ORDERED: ALEN70TA19 PO (18:41)
[2019-11-19] MEDS ORDERED: ALUMSUS6 PO (18:47)
[2019-11-19] MEDS ORDERED: MIRALAX3350 N1 PO (18:49)
[2019-11-19] MEDS ORDERED: OMEP40CA PO (18:50)
[2019-11-19] MEDS ORDERED: MULTIVITAMI1 PO (18:50)
[2019-11-19] MEDS ORDERED: AZO CRANBERY UR1 CAP PO (18:56)
[2019-11-19] MEDS ORDERED: BENEPROTEIN6 GM PO (18:57)
[2019-11-19] MEDS ORDERED: CULTURELL3 PO (18:58)
[2019-11-19] MEDS ORDERED: TYLENOL325 MG PO (19:01)
[2019-11-19] MEDS ORDERED: ONDA4TAB3 PO (19:02)
== END 2019-11-22 09:33 | disposition short-term general hospital (02) ==
LOC: PAVA 11:26
PROVIDERS: ADMIT Internal Medicine

== ENCOUNTER 2019-11-19 08:47 | Inpatient (IN) | payer OTHER ==
[~2019-11-19] VITALS: Ht 152.4 cm; Wt 63.2 kg
[2019-11-19] VITALS (14 sets, daily range): BP systolic 79–109; BP diastolic 42–75; TEMP 97.4–99.4; Ht 152.4 cm; Wt 63.2 kg
[2019-11-19 09:44] LABS: POTASSIUM 4.4 mmol/L (3.6-5.2)
[2019-11-19 09:50] LABS: PLATELET COUNT 173 K/uL (152-353)
[2019-11-19 10:01] LABS: PARTIAL THROMBOPLASTIN TIME 34.2 SECONDS (24.5-33.6)
[2019-11-19] MEDS ORDERED: ALEN70TA19 PO (18:41)
[2019-11-19] MEDS ORDERED: ALUMSUS6 PO (18:47)
[2019-11-19] MEDS ORDERED: MIRALAX3350 N1 PO (18:49)
[2019-11-19] MEDS ORDERED: MULTIVITAMI1 PO (18:50)
[2019-11-19] MEDS ORDERED: OMEP40CA PO (18:50)
[2019-11-19] MEDS ORDERED: AZO CRANBERY UR1 CAP PO (18:56)
[2019-11-19] MEDS ORDERED: BENEPROTEIN6 GM PO (18:57)
[2019-11-19] MEDS ORDERED: CULTURELL3 PO (18:58)
[2019-11-19] MEDS ORDERED: TYLENOL325 MG PO (19:01)
[2019-11-19] MEDS ORDERED: ONDA4TAB3 PO (19:02)
[2019-11-20 00:13] VITALS: BP 85/60; TEMP 99.6
[2019-11-20 04:13] VITALS: BP 86/52; TEMP 99.9
[2019-11-20 05:29] LABS: PLATELET COUNT 59 K/uL (152-353)
[2019-11-20 05:35] LABS: POTASSIUM 4.4 mmol/L (3.6-5.2)
[2019-11-20 08:00] VITALS: BP 106/65; TEMP 99.3
[2019-11-20 12:00] VITALS: BP 108/71; TEMP 98.6
[2019-11-20 16:00] VITALS: BP 131/76; TEMP 99
[2019-11-20 20:00] VITALS: BP 136/84; TEMP 98.6
[2019-11-21] VITALS (7 sets, daily range): BP systolic 113–141; BP diastolic 62–81; TEMP 98–99.9
[2019-11-21 04:46] LABS: PLATELET COUNT 38 K/uL (152-353)
[2019-11-21 05:39] LABS: POTASSIUM 4.3 mmol/L (3.6-5.2)
[2019-11-22 04:00] VITALS: BP 132/76; TEMP 98.8
[2019-11-22 07:57] VITALS: BP 152/91; TEMP 98.6
== END 2019-11-22 18:30 | disposition home health service (06) | DRG 193 ==
LOC: ED 08:47 → MED/SURG 10:20
PROVIDERS: Internal Medicine; ADMIT Hospitalist
DX: J18.8 Other pneumonia, unspecified organism (principal); R65.21 Severe sepsis with septic shock; G40.89 Other seizures; N18.4 Chronic kidney disease, stage 4 (severe); N17.8 Other acute kidney failure; G30.8 Other Alzheimer's disease; F02.80 Dementia in other diseases classified elsewhere, unspecified severity, without behavioral disturbance, psychotic disturbance, mood disturbance, and anxiety; E03.8 Other specified hypothyroidism; M15.8 Other polyosteoarthritis; Z86.73 Personal history of transient ischemic attack (TIA), and cerebral infarction without residual deficits; K21.9 Gastro-esophageal reflux disease without esophagitis; I95.89 Other hypotension; E11.22 Type 2 diabetes mellitus with diabetic chronic kidney disease; I12.9 Hypertensive chronic kidney disease with stage 1 through stage 4 chronic kidney disease, or unspecified chronic kidney disease
CPT/HCPCS: 36415; 36600; 51702; 80053; 80202; 81000; 82550; 82805; 82962; 83605; 83880; 84443; 84484; 85007; 85027; 85610; 85730; 87077; 87086; 87088; 87186; 87635; 93005; 94760; 96360; 96361; 96365; 96366; 99285; J1650; J1956; J2270; J2543; J3370; J3490; J7060; U0003